=== PATIENT | female | born 1990 | race Caucasian/White ===

== ENCOUNTER 2022-01-01 16:24 | Emergency (ER) | payer OTHER ==
[2022-01-01 17:05] LABS: HEMOGLOBIN 13.3 gm/dl (12.3-15.3); RED BLOOD COUNT 4.59 M/UL (4.00-5.10); WHITE BLOOD COUNT 4.2 K/UL (4.5-11.0)
[2022-01-01 17:39] LABS: BUN/CREATININE RATIO 9 (0-10)
[2022-01-01] MEDS ORDERED: ELIQUIS 5 MG TAB5 MG GT (22:41)
== END 2022-01-01 22:52 | disposition home or self-care (01) ==
LOC: ER1 16:24
DX: U07.1 COVID-19 (principal)
CPT/HCPCS: 71045; 80053; 81001; 82550; 82553; 83605; 83880; 84484; 84703; 85025; 85379; 86140; 87040; 87086; 93005; 96374; 99284; J0696; Q9967